=== PATIENT | male | born 1955 | race Caucasian/White ===

== ENCOUNTER 2016-09-02 07:14 | Outpatient (CLI) | payer OTHER ==
[2016-09-02 08:46] LABS: #Basophils 0.1 thou/uL (0.0-0.2); #Eosinphils 0.3 thou/uL (0.0-0.7); #Lymphocytes 2.2 thou/uL (1.20-3.40); #Monocytes 0.7 thou/uL (0.11-0.59); #Neutrophils 5.2 thou/uL (1.40-6.50); %Basophils 1.3 % (0.0-1.0); %Lymphocytes 25.8 % (21.0-51.0); %Monocytes 8.5 % (0.0-10.0); %Neutrophils 61.4 % (42.0-75.0); Hemoglobin 16.3 g/dL (14.0-18.0); Mean Corpuscular HGB CONC 33.1 g/dL (32.0-36.0); Mean Corpuscular Hemoglobin 31.4 pg (27.0-31.0); Mean Platelet Volume 7.9 fL (7.4-10.4); Platelet Count 203 thou/uL (130-400); RBC Distribution Width 12.3 % (11.5-14.5); Red Blood Cell (RBC) Count 5.19 mill/uL (4.70-6.10); White Blood Cell (WBC) Count 8.5 thou/uL (4.8-10.8)
[2016-09-02 08:57] LABS: Anion Gap 16 mmol/L (10-20); BUN (Urea Nitrogen) 16 mg/dL (8.4-25.7); Calc. Creatinine Clearance 0 mL/min (70-130); Calcium 9.3 mg/dL (7.8-10.44); Carbon Dioxide 23 mmol/L (22-29); Cardiac Risk 3.1 (Less than 4.5); Chloride 104 mmol/L (98-107); Cholesterol 141 mg/dl (< 200 Desired); Estimated GFR-MDRD Greater than 90; Glucose 122 mg/dL (70-105); HDL Cholesterol 46 mg/dL (>60 Neg Risk); LDL Cholesterol, Calculated 72 mg/dL; Potassium 4.5 mmol/L (3.5-5.1); Sodium 138 mmol/L (136-145); Triglycerides 114 mg/dL (Less than 150)
[2016-09-02 09:21] LABS: PSA-Asymptomatic (SCREENING) 0.49 ng/mL (0-4.0); Thyroid Stimulating Hormone 1.1099 uIU/mL (0.35-4.94)
[2016-09-02 15:04] LABS: Hemoglobin A1c 6.1 % (4.0-6.0)
[2016-09-02 18:21] LABS: HBCM Index 0.08 S/CO (0-0.79); Hep A IgM AB Non-Reactive (NonReactive); Hep A IgM S/CO 0.11 S/CO (0-0.79); Hep B Surf Ag Non-Reactive S/CO (NonReactive); Hep C IgG Ab Non-Reactive (NonReactive); Hep C Index 0.11 S/CO (0-0.79); Hepatitis B Core IGM Abs Non-Reactive (NonReactive)
== END 2016-09-02 07:15 ==
LOC: NAVSJIPCSP 07:14
PROVIDERS: ATTEND Nurse Practitioner Family
DX: E78.2 Mixed hyperlipidemia (principal); I15.9 Secondary hypertension, unspecified; E11.9 Type 2 diabetes mellitus without complications; Z79.899 Other long term (current) drug therapy
CPT/HCPCS: 80048; 80061; 80074; 83036; 84443; 85025; G0103

== ENCOUNTER 2016-10-18 12:06 | Emergency (ER) | payer OTHER ==
[2016-10-18] MEDS ORDERED: Lidocaine 1% 20 ML MDV ONE (12:41)
== END 2016-10-18 13:11 | disposition home or self-care (01) ==
LOC: NAV ERS 12:06
DX: S61.211A Laceration without foreign body of left index finger without damage to nail, initial encounter (principal); E11.9 Type 2 diabetes mellitus without complications; F17.210 Nicotine dependence, cigarettes, uncomplicated; Z79.84 Long term (current) use of oral hypoglycemic drugs; Z79.899 Other long term (current) drug therapy; W26.0XXA Contact with knife, initial encounter
CPT/HCPCS: 12001; J2001

== ENCOUNTER 2021-02-10 01:53 | Emergency (ER) | payer OTHER ==
[2021-02-10] MEDS ORDERED: Sodium Chloride 0.9% 1,000 ML ONE (02:39)
[2021-02-10 03:52] LABS: %Eosinophils 3.2 % (0.0-10.0); %Lymphocytes 21.2 % (21.0-51.0); %Monocytes 7.9 % (0.0-10.0); %Neutrophils 66.4 % (42.0-75.0); Hemoglobin 15.5 g/dL (14.0-18.0); Manual Diff?? NO; Mean Corpuscular HGB CONC 32.9 g/dL (32.0-36.0); Mean Corpuscular Hemoglobin 30.8 pg (27.0-31.0); Mean Corpuscular Volume 93.8 fL (78.0-98.0); Mean Platelet Volume 6.9 fL (7.4-10.4); Platelet Count 246 thou/uL (130-400); RBC Distribution Width 12.2 % (11.5-14.5); Red Blood Cell (RBC) Count 5.04 mill/uL (4.70-6.10); White Blood Cell (WBC) Count 9.7 thou/uL (4.8-10.8)
[2021-02-10 03:53] LABS: #Basophils 0.1 thou/uL (0.0-0.2); #Eosinphils 0.3 thou/uL (0.0-0.7); #Lymphocytes 2.1 thou/uL (1.20-3.40); #Monocytes 0.8 thou/uL (0.11-0.59); #Neutrophils 6.4 thou/uL (1.40-6.50); %Basophils 1.4 % (0.0-1.0)
[2021-02-10 03:54] LABS: Bilirubin Negative (Negative); Blood, Urine Moderate (Negative); Clarity Cloudy (Clear); Glucose, Urine (Dipstick) Negative (Negative); Ketone, Urine Negative (Negative); Leukocyte Moderate (Negative); Nitrite Negative (Negative); Protein, Urine (Dipstick) 100 mg/dL (Neg-Trace); Specific Gravity, Urine 1.025 (1.005-1.030); Urobilinogen 0.2 mg/dL (Less than 2)
[2021-02-10 03:55] LABS: Bacteria/HPF 2+ HPF (None Seen); WBC/HPF Greater than 50 HPF (0-3)
[2021-02-10 04:01] LABS: ALT (SGPT) 17 U/L (8-55); AST (SGOT) 13 U/L (5-34); Albumin 3.9 g/dL (3.4-4.8); Alkaline Phosphatase 91 U/L (40-110); Anion Gap 12 mmol/L (10-20); BUN (Urea Nitrogen) 17 mg/dL (8.4-25.7); Bilirubin, Total 0.6 mg/dL (0.2-1.2); Calc. Creatinine Clearance 0 mL/min (70-130); Calcium 9.9 mg/dL (7.8-10.44); Carbon Dioxide 24 mmol/L (23-31); Chloride 103 mmol/L (98-107); Globulin 3.8 g/dL (2.4-3.5); Glucose 158 mg/dL (80-115); Protein, Total 7.7 g/dL (5.8-8.1); Sodium 135 mmol/L (136-145)
[2021-02-10] MEDS ORDERED: Ketorolac Tromethamine 30 MG/ML VIAL ONE (04:30)
[2021-02-10] MEDS ORDERED: Cipro 250 MG TAB ONE (04:30)
== END 2021-02-10 05:00 | disposition home or self-care (01) ==
LOC: NAV ERS 01:53
DX: N39.0 Urinary tract infection, site not specified (principal); R05.9 Cough, unspecified; I10 Essential (primary) hypertension; E11.9 Type 2 diabetes mellitus without complications; F17.210 Nicotine dependence, cigarettes, uncomplicated; Z79.84 Long term (current) use of oral hypoglycemic drugs; Z79.899 Other long term (current) drug therapy
CPT/HCPCS: 80053; 81003; 81015; 85025; 96374; J1885; J7050

== ENCOUNTER 2021-08-20 14:33 | Emergency (ER) | payer OTHER ==
[2021-08-20] MEDS ORDERED: Boostrix 0.5 ML (Tdap) VIAL ONE (15:00)
[2021-08-20] MEDS ORDERED: Lidocaine 4% Cream 5 GM TUBE w/ Tegaderm ONE (15:00)
[2021-08-20] MEDS ORDERED: Lidocaine 1% 20 ML MDV ONE (15:45)
== END 2021-08-20 16:45 | disposition home or self-care (01) ==
LOC: NAV ERS 14:33
DX: S06.0X1A Concussion with loss of consciousness of 30 minutes or less, initial encounter (principal); S01.01XA Laceration without foreign body of scalp, initial encounter; S51.011A Laceration without foreign body of right elbow, initial encounter; I10 Essential (primary) hypertension; E11.9 Type 2 diabetes mellitus without complications; F17.210 Nicotine dependence, cigarettes, uncomplicated; Z79.899 Other long term (current) drug therapy; W11.XXXA Fall on and from ladder, initial encounter
CPT/HCPCS: 12004; 36416; 70450; 72125; 90471; 90715